=== PATIENT | female | born 1970 | race African-American/Black ===

== ENCOUNTER 2018-05-23 15:48 | Inpatient (IN) | payer OTHER ==
[2018-05-23 17:28] VITALS: BMI 32.4
--- NOTE | 2018-05-23 19:18 | HP ---
CIWA Score Nausea/Vomitin-No Nausea/No Vomiting Muscle Tremors: 4-Moderate,w/Arms Extend Anxiety: 4-Mod. Anxious/Guarded Agitation: 1-Slight > Activity Paroxysmal Sweats: 3 Orientation: 0-Oriented Tacttile Disturbances: 0-None Auditory Disturbances: 0-None Visual Disturbances: 0-None Headache: 0-None Present CIWA-Ar Total Score: 12 - Admission Criteria OASAS Guidelines: Admission for Medically Managed Detox: Requires at least one of the followin. CIWA greater than 12 2. Seizures within the past 24 hours 3. Delirium tremens within the past 24 hours 4. Hallucinations within the past 24 hours 5. Acute intervention needed for co occurring medical disorder 6. Acute intervention needed for co occurring psychiatric disorder 7. Severe withdrawal that cannot be handled at a lower level of care (continued vomiting, continued diarrhea, abnormal vital signs) requiring intravenous medication and/or fluids 8. Admission [facility] Allergies/Adverse Reactions: Allergies Allergy/AdvReac Type Severity Reaction Status Date / Time No Known Allergies Allergy Verified 05/23/18 18:03 History of Present Illness: pt here requesting detox from etoh use , reports 6=7 cans x 24 oz each , states she has tremors if not drinking, current symptoms as above, denies seizures, blackouts , latest use this morning, reports starts drinking around 9 am, first age of use 16 . Prior detox 2006 . cocaine : 7-8 bags/day denies ivdu , first age of use 26 tobacco : 10-12/day since age 15 heroin : since age 26 , denies IVDU ,reports 6-7 bags/day , latest use 3 d. ago , in [facility] since 2011 , current dose 155 mg PMHX : DM II dx 7 years ago , htn , hld PSHx : btl , left hip THR 2/2 frx fall off a bannister 5 years ago , had surgery in [place] , umbilical hernia 2 years ago PSych : auditory hallucinations , denies SI / HI . Meds : risperdal . Pt declined other rx meds . [employer]IC as below. Reference #: [id number] Others' Prescriptions Patient Name: Shannon Parada Date: 1970 Address: [address] [place] [address] Sex: Female Rx Written Rx Dispensed Drug Quantity Days Supply Prescriber Name 05/08/2018 05/15/2018 clonazepam 2 mg tablet 60 30 Randi Grubbs MD 04/15/2018 04/18/2018 clonazepam 2 mg tablet 60 30 Randi Grubbs MD 01/18/2018 01/24/2018 clonazepam 2 mg tablet 30 30 Randi Grubbs MD 11/23/2017 12/05/2017 clonazepam 2 mg tablet 30 30 Randi Grubbs MD 10/26/2017 10/30/2017 clonazepam 2 mg tablet 30 30 Randi Grubbs MD 10/02/2017 10/02/2017 clonazepam 2 mg tablet 30 30 Randi Grubbs MD 08/30/2017 09/04/2017 clonazepam 2 mg tablet 30 30 Randi Grubbs MD 08/02/2017 08/03/2017 clonazepam 2 mg tablet 30 30 Randi Grubbs MD 06/28/2017 07/05/2017 clonazepam 2 mg tablet 30 30 Randi Grubbs MD 05/29/2017 06/05/2017 clonazepam 2 mg tablet 30 30 Randi Grubbs MD Exam Limitations: Clinical Condition - Ebola screening Have you traveled outside of the country in the last 21 days: No Have you had contact with anyone from an Ebola affected area: No Have you been sick,other than usual withdrawal symptoms: No - Review of Systems Constitutional: See HPI EENT: reports: Other ( glasses - reading dentures upper and lower) Respiratory: reports: No Symptoms reported Cardiac: reports: No Symptoms Reported GI: reports: Other (reports recurrent hernia) : reports: No Symptoms Reported Musculoskeletal: reports: See HPI, Joint Pain (left hip - chronic) Integumentary: reports: No Symptoms Reported Neuro: reports: No Symptoms reported Psychiatric: reports: Orientated x3 Patient History - Patient Medical History Hx Asthma: No Hx Chronic Obstructive Pulmonary Disease (COPD): No Hx Cardiac Disorders: No Hx Hypertension: Yes Hx Seizures: No Hx Diabetes: Yes (Type II) Hx Gastrointestinal Disorders: No Hx Genitourinary Disorders: No Hx Sexually Transmitted Disorders: No Hx Renal Disease (ESRD): No Hx Depression: No Hx Suicide Attempt: No Hx Schizophrenia: Yes - Patient Surgical History Past Surgical History: Yes Hx Abdominal Surgery: Yes (hernia repair) Hx Orthopedic Surgery: Yes (L hip replacement) Other Surgical History: tubal ligation 2008 - PPD History Previous Implant?: Yes Documented Results: Positive w/o proof Implanted On Prior [facility] Admission?: No - Reproductive History Patient : No - Smoking Cessation Smoking history: Current every day smoker Have you smoked in the past 12 months: Yes Aproximately how many cigarettes per day: 12 Hx Chewing Tobacco Use: No Initiated information on smoking cessation: No - Substances Abused Alcohol Route: Oral Frequency: Daily Amount used: 6pk beer Age of first use: 15 Date of Last Use: 05/23/18 Heroin Route: Smoking Frequency: Daily Amount used: 7-8 bags Age of first use: 26 Date of Last Use: 05/22/18 Crack Route: Smoking Frequency: Daily Amount used: $60-70 Age of first use: 26 Date of Last Use: 05/22/18 Family Disease History - Family Disease History Family History: Unable to Obtain (states was adopted) Admission Physical Exam [facility] - Vital Signs Vital Signs: Vital Signs - 24 hr 05/23/18 17:24 Temperature 97 F L Pulse Rate 70 Respiratory 18 Rate Blood Pressure 112/77 - Physical General Appearance: Yes: No Apparent Distress, Sweating, Anxious HEENTM: Yes: EOMI, Hearing grossly Normal, Normocephalic, Normal Voice Respiratory: Yes: Chest Non-Tender, Lungs Clear, Normal Breath Sounds Neck: Yes: No masses,lesions,Nodules, Trachea in good position Cardiology: Yes: Regular Rhythm, Regular Rate, S1, S2 Back: Yes: Normal Inspection Musculoskeletal: Yes: full range of Motion, Gait Steady Extremities: Yes: Non-Tender Neurological: Yes: Motor Strength 5/5 Integumentary: Yes: Normal Color, Warm - Diagnostic (1) Cocaine dependence Current Visit: Yes Status: Chronic Qualifiers: Substance use status: uncomplicated Qualified Code(s): F14.20 - Cocaine dependence, uncomplicated (2) Opioid dependence on agonist therapy Current Visit: Yes Status: Chronic (3) Nicotine dependence Current Visit: Yes Status: Acute Qualifiers: Nicotine product type: cigarettes (4) Alcohol dependence Current Visit: Yes Status: Acute Qualifiers: Substance use status: uncomplicated Qualified Code(s): F10.20 - Alcohol dependence, uncomplicated BHS Breath Alcohol Content Breath Alcohol Content: 0 Urine Pregancy Test - Result Urine Test Results: Negative - NO Line Present Urine Drug Screen - Results Drug Screen Negative: No Urine Drug Screen Results: JP-Cocaine, MTD-Methadone Inpatient Rehab Admission - Rehab Decision to Admit Inpatient rehab admission?: No
[2018-05-23] MEDS ORDERED: MAG HYDROX/AL HYDROX/SIMETH 30 ML UNIT-DOSE CUP PO PRN (19:32)
[2018-05-23] MEDS ORDERED: DICYCLOMINE HCL 10 MG CAPSULE PO PRN (19:32)
[2018-05-23] MEDS ORDERED: diazePAM 5 MG TABLET PO PRN (19:32)
[2018-05-23] MEDS ORDERED: NICOTINE POLACRILEX 2 MG GUM BUC PRN (19:32)
[2018-05-23] MEDS ORDERED: MAGNESIUM CITRATE 300 ML BOTTLE PO PRN (19:32)
[2018-05-23] MEDS ORDERED: ACETAMINOPHEN 325 MG TABLET (FP) PO PRN ×2 (19:32)
[2018-05-23] MEDS ORDERED: IBUPROFEN 400 MG TABLET (FP) PO PRN (19:32)
[2018-05-23] MEDS ORDERED: hydrOXYzine PAMOATE 25 MG CAPSULE (FP) PO PRN (19:32)
[2018-05-23] MEDS ORDERED: MAGNESIUM HYDROX 2400MG/30ML ORAL SUSPENSION 30 ML CUP PO PRN (19:32)
[2018-05-23] MEDS ORDERED: MENTHOL/PHENOL 1 EACH UD MM PRN (19:32)
[2018-05-23] MEDS: THIAMINE HCL 100 MG TABLET (FP) PO SCH (21:55)
[2018-05-23] MEDS: diazePAM 5 MG TABLET PO SCH (21:55)
[2018-05-24] MEDS: diazePAM 5 MG TABLET PO SCH ×3 (06:01→22:12)
[2018-05-24] MEDS: metFORMIN HCL 500 MG TABLET (FP) PO SCH (06:04)
[2018-05-24] MEDS: INSULIN SLIDING SCALE (NOVOLOG) 1 VIAL SQ SCH ×2 (06:07→17:03)
[2018-05-24] MEDS ORDERED: METHADONE HCL 10 MG TABLET PO SCH (07:15)
[2018-05-24] MEDS ORDERED: METHADONE HCL 40 MG DISPERSABLE TABLET ONE (07:21)
[2018-05-24] MEDS ORDERED: METHADONE HCL 10 MG TABLET ONE (07:21)
[2018-05-24] MEDS ORDERED: METHADONE HCL 5 MG TABLET ONE (07:22)
[2018-05-24] MEDS: METHADONE 120 MG, METHADONE 30 MG, METHADONE 5 MG PO SCH (07:24)
[2018-05-24 09:43] LABS: HEMATOCRIT 36.2 % (32.4-45.2); HEMOGLOBIN 12.5 GM/dL (10.7-15.3); MCH 30.4 pg (25.7-33.7); MCHC 34.4 g/dl (32.0-36.0); MEAN CELL VOLUME 88.4 fl (80-96); MEAN PLT VOLUME 8.8 fl (7.5-11.1); PLATELET COUNT 195 K/MM3 (134-434); RDW 14.7 % (11.6-15.6); WHITE BLOOD COUNT 4.5 K/mm3 (4.0-10.0)
[2018-05-24 09:55] LABS: ALK PHOS 70 U/L (45-117); ANION GAP 8 MMOL/L (8-16); BILIRUBIN,TOTAL 0.1 mg/dL (0.2-1); BLOOD UREA NITROGEN 25 mg/dL (7-18); CHLORIDE 108 mmol/L (98-107); CO2 25 mmol/L (21-32); CREATININE 1.2 mg/dL (0.55-1.3); GLUCOSE,RANDOM 84 mg/dL (74-106); POTASSIUM 4.2 mmol/L (3.5-5.1); SGOT/AST 11 U/L (15-37); SGPT/ALT 16 U/L (13-61); SODIUM 141 mmol/L (136-145)
[2018-05-24] MEDS: NICOTINE 21 MG/24 HOURS TOPICAL PATCH TD SCH (10:11)
[2018-05-24] MEDS: PRENATAL VITAMINS W/ FOLIC ACID TABLET (FP) PO SCH (10:11)
--- NOTE | 2018-05-24 12:09 | CONSULT ---
[facility] Psychiatric Consult - Data Date of interview: 05/24/18 Admission source: [facility] Identifying data: First admission to [facility] for this 48 y/o AA female self- referred for detoxification (alcohol, heroin, cocaine). Interviewed on . Patient is single, a mother of three, domiciled, unemployed and supported on Public Assistance. Substance Abuse History: Confirmed by patient in this interview. Details in current [facility] report as follows : Smoking history: Current every day smoker. Have you smoked in the past 12 months: Yes. Aproximately how many cigarettes per day: 12. Hx Chewing Tobacco Use: No. Initiated information on smoking cessation: No. - Substances Abused. Alcohol. Route: Oral. Frequency: Daily. Amount used: 6pk beer. Age of first use: 15. Date of Last Use: . Heroin. Route: Smoking. Frequency: Daily. Amount used: 7-8 bags. Age of first use: 26. Date of Last Use: 05/22/18. Crack. Route: Smoking. Frequency: Daily. Amount used: $60-70. Age of first use: 26. Date of Last Use : 05/22/18 Medical History: Remarkable for arthritis (both knees), hypertension, non- insulin dependent diabetes mellitus, dyslipidemia, arthroplastic surgery of left hip (five years ago), umbilical herniaand history of tubal ligation (2008). Psychiatric History: No reported history of psychiatric hospitalizations. Patient has, however, been diagnosed with Bipolar Disorder and placed on risperdal + sertraline (doses not recalled). Ms Parada is currently seeing a psychiatrist at the [facility] in [facility]. Denies history of suicide attempts. Patient is currently on methadone maintenance (155 mg/day). Physical/Sexual Abuse/Trauma History: No history of abuse. Additional Comment: Urine Drug Screen Results: JP-Cocaine, MTD-Methadone. Noted. Mental Status Exam - Mental Status Exam Alert and Oriented to: Time, Place, Person Cognitive Function: Good Patient Appearance: Well Groomed Mood: Withdrawn, Apprehensive Affect: Mood Congruent, Constricted Patient Behavior: Fatigued (falling almost asleep during examination), Cooperative Speech Pattern: Clear, Delayed Voice Loudness: Moderately Soft/Quiet Thought Process: Goal Oriented Thought Disorder: Not Present Hallucinations: Denies Suicidal Ideation: Denies Homicidal Ideation: Denies Insight/Judgement: Poor Sleep: Well Appetite: Good Gait/Station: Other (walks with a limp ; has a cane for ambulation) Psychiatric Findings - Problem List ([place] 1, 2,3) (1) Alcohol dependence Current Visit: Yes Status: Acute Qualifiers: Substance use status: uncomplicated Qualified Code(s): F10.20 - Alcohol dependence, uncomplicated (2) Nicotine dependence Current Visit: Yes Status: Chronic Qualifiers: Nicotine product type: cigarettes (3) Cocaine dependence Current Visit: Yes Status: Chronic Qualifiers: Substance use status: uncomplicated Qualified Code(s): F14.20 - Cocaine dependence, uncomplicated (4) Opioid dependence on agonist therapy Current Visit: Yes Status: Chronic (5) Substance induced mood disorder Current Visit: Yes Status: Chronic (6) History of bipolar disorder Current Visit: Yes Status: Chronic - Initial Treatment Plan Initial Treatment Plan: Psychoeducation. Sleep hygiene. Detoxification in progress. Support offered. NA/AA meetings. Groups. Motivational sessions. Falls precautions (patient is encouraged to use her cane for ambulation).
--- NOTE | 2018-05-24 18:10 | PN ---
[facility] CIWA - CIWA Score Nausea/Vomitin-No Nausea/No Vomiting Muscle Tremors: 3 Anxiety: 3 Agitation: 1-Slight > Activity Paroxysmal Sweats: 3 Orientation: 0-Oriented Tacttile Disturbances: 2-Mild Itch/Numbness/Burn Auditory Disturbances: 0-None Visual Disturbances: 2-Mild Sensitivity Headache: 0-None Present CIWA-Ar Total Score: 14 BHS Progress Note (SOAP) Subjective: Anxious, Tremors, Sweating. Objective: PATIENT A & O X 3, OBSERVED AMBULATING ON UNIT. IN NO ACUTE DISTRESS. 05/24/18 18:18 Vital Signs Temperature 98.6 F 05/24/18 17:56 Pulse Rate 61 05/24/18 17:56 Respiratory Rate 18 05/24/18 17:56 Blood Pressure 121/84 05/24/18 17:56 O2 Sat by Pulse Oximetry (%) Laboratory Tests 05/23/18 05/24/18 05/24/18 18:07 06:03 07:40 WBC RBC Hgb Hct MCV MCH MCHC RDW Plt Count MPV Sodium Potassium Chloride Carbon Dioxide Anion Gap BUN Creatinine Creat Clearance w eGFR POC Glucometer 109 101 Random Glucose Calcium Total Bilirubin AST ALT Alkaline Phosphatase Total Protein Albumin RPR Titer HIV 1&2 Antibody Screen Negative HIV P24 Antigen Negative 05/24/18 05/24/18 05/24/18 07:40 07:40 07:40 WBC 4.5 RBC 4.10 Hgb 12.5 Hct 36.2 MCV 88.4 MCH 30.4 MCHC 34.4 RDW 14.7 Plt Count 195 MPV 8.8 Sodium 141 Potassium 4.2 Chloride 108 H Carbon Dioxide 25 Anion Gap 8 BUN 25 H Creatinine 1.2 Creat Clearance w eGFR 47.55 POC Glucometer Random Glucose 84 Calcium 8.0 L Total Bilirubin 0.1 L AST 11 L ALT 16 Alkaline Phosphatase 70 Total Protein 6.0 L Albumin 3.0 L RPR Titer Nonreactive HIV 1&2 Antibody Screen HIV P24 Antigen 05/24/18 16:47 WBC RBC Hgb Hct MCV MCH MCHC RDW Plt Count MPV Sodium Potassium Chloride Carbon Dioxide Anion Gap BUN Creatinine Creat Clearance w eGFR POC Glucometer 111 Random Glucose Calcium Total Bilirubin AST ALT Alkaline Phosphatase Total Protein Albumin RPR Titer HIV 1&2 Antibody Screen HIV P24 Antigen LABS NOTED. Assessment: 05/24/18 18:19 WITHDRAWAL SYMPTOMS. HYPOCALCEMIA. 05/24/18 18:20 Plan: CONTINUE DETOX. OSCAL, 500 MG PO BID FOR HYPOCALCEMIA. D/C IBUPROFEN AND MAGNESIUM-CONTAINING MEDS. FOR ABNORMAL ADMISSION RENAL LAB VALUES.
[2018-05-24] MEDS: CALCIUM 500MG/VIT-D 200 UNITS COMBO TABLET (FP) PO SCH (22:12)
[2018-05-24] MEDS: risperiDONE 1 MG TABLET (FP) PO SCH (22:12)
[2018-05-24] MEDS: MELATONIN 5 MG TABLETS PO PRN (22:12)
[2018-05-24] MEDS: THIAMINE HCL 100 MG TABLET (FP) PO SCH (22:12)
[2018-05-24] MEDS ORDERED: guaiFENesin 200 MG/10 ML 10 ML UNIT-DOSE CUPS PO PRN (23:26)
[2018-05-24] MEDS: P-EPHED 60MG/TRIPROLIDI 2.5MG TABLET PO PRN (23:34)
[2018-05-25] MEDS ORDERED: METHADONE HCL 10 MG TABLET ONE (04:47)
[2018-05-25] MEDS ORDERED: METHADONE HCL 5 MG TABLET ONE (04:48)
[2018-05-25] MEDS ORDERED: METHADONE HCL 40 MG DISPERSABLE TABLET ONE (04:48)
[2018-05-25] MEDS: METHADONE 120 MG, METHADONE 30 MG, METHADONE 5 MG PO SCH (06:11)
[2018-05-25] MEDS: metFORMIN HCL 500 MG TABLET (FP) PO SCH (06:12)
[2018-05-25] MEDS: INSULIN SLIDING SCALE (NOVOLOG) 1 VIAL SQ SCH ×2 (06:14→16:58)
[2018-05-25] MEDS: NICOTINE 21 MG/24 HOURS TOPICAL PATCH TD SCH (09:54)
[2018-05-25] MEDS: CALCIUM 500MG/VIT-D 200 UNITS COMBO TABLET (FP) PO SCH ×2 (09:55→22:26)
[2018-05-25] MEDS: diazePAM 5 MG TABLET PO SCH ×2 (09:55→22:26)
[2018-05-25] MEDS: PRENATAL VITAMINS W/ FOLIC ACID TABLET (FP) PO SCH (09:55)
[2018-05-25] MEDS: SERTRALINE HCL 50 MG TABLET (FP) PO SCH (11:00)
--- NOTE | 2018-05-25 16:24 | PN ---
S CIWA - CIWA Score Nausea/Vomitin-No Nausea/No Vomiting Muscle Tremors: 3 Anxiety: 3 Agitation: 1-Slight > Activity Paroxysmal Sweats: 3 Orientation: 0-Oriented Tacttile Disturbances: 2-Mild Itch/Numbness/Burn Auditory Disturbances: 0-None Visual Disturbances: 1-Very Mild Sensitivity Headache: 0-None Present CIWA-Ar Total Score: 13 BHS Progress Note (SOAP) Subjective: Anxious, Tremors, Sweating. Objective: PATIENT A & O X 3. IN NO ACUTE DISTRESS. 05/25/18 16:22 Vital Signs Temperature 97.3 F L 05/25/18 14:00 Pulse Rate 79 05/25/18 14:00 Respiratory Rate 18 05/25/18 14:00 Blood Pressure 117/77 05/25/18 14:00 O2 Sat by Pulse Oximetry (%) Laboratory Tests 05/23/18 05/24/18 05/24/18 18:07 06:03 07:40 WBC RBC Hgb Hct MCV MCH MCHC RDW Plt Count MPV Sodium Potassium Chloride Carbon Dioxide Anion Gap BUN Creatinine Creat Clearance w eGFR POC Glucometer 109 101 Random Glucose Calcium Total Bilirubin AST ALT Alkaline Phosphatase Total Protein Albumin RPR Titer HIV 1&2 Antibody Screen Negative HIV P24 Antigen Negative 05/24/18 05/24/18 05/24/18 07:40 07:40 07:40 WBC 4.5 RBC 4.10 Hgb 12.5 Hct 36.2 MCV 88.4 MCH 30.4 MCHC 34.4 RDW 14.7 Plt Count 195 MPV 8.8 Sodium 141 Potassium 4.2 Chloride 108 H Carbon Dioxide 25 Anion Gap 8 BUN 25 H Creatinine 1.2 Creat Clearance w eGFR 47.55 POC Glucometer Random Glucose 84 Calcium 8.0 L Total Bilirubin 0.1 L AST 11 L ALT 16 Alkaline Phosphatase 70 Total Protein 6.0 L Albumin 3.0 L RPR Titer Nonreactive HIV 1&2 Antibody Screen HIV P24 Antigen 05/24/18 05/25/18 16:47 06:10 WBC RBC Hgb Hct MCV MCH MCHC RDW Plt Count MPV Sodium Potassium Chloride Carbon Dioxide Anion Gap BUN Creatinine Creat Clearance w eGFR POC Glucometer 111 97 Random Glucose Calcium Total Bilirubin AST ALT Alkaline Phosphatase Total Protein Albumin RPR Titer HIV 1&2 Antibody Screen HIV P24 Antigen LABS NOTED. Assessment: 05/25/18 16:23 WITHDRAWAL SYMPTOMS. HYPOCALCEMIA. 05/25/18 16:24 Plan: CONTINUE DETOX. CONTINUE OSCAL FOR HYPOCALCEMIA.
[2018-05-25] MEDS: P-EPHED 60MG/TRIPROLIDI 2.5MG TABLET PO PRN (17:59)
[2018-05-25] MEDS: THIAMINE HCL 100 MG TABLET (FP) PO SCH (22:25)
[2018-05-25] MEDS: risperiDONE 1 MG TABLET (FP) PO SCH (22:26)
[2018-05-26] MEDS ORDERED: METHADONE HCL 10 MG TABLET ONE (05:02)
[2018-05-26] MEDS ORDERED: METHADONE HCL 40 MG DISPERSABLE TABLET ONE (05:02)
[2018-05-26] MEDS ORDERED: METHADONE HCL 5 MG TABLET ONE (05:03)
[2018-05-26] MEDS: METHADONE 120 MG, METHADONE 30 MG, METHADONE 5 MG PO SCH (05:46)
[2018-05-26] MEDS ORDERED: diazePAM 5 MG TABLET PO SCH (06:00)
[2018-05-26] MEDS: metFORMIN HCL 500 MG TABLET (FP) PO SCH (06:13)
[2018-05-26] MEDS: INSULIN SLIDING SCALE (NOVOLOG) 1 VIAL SQ SCH ×2 (06:33→16:55)
[2018-05-26] MEDS: PRENATAL VITAMINS W/ FOLIC ACID TABLET (FP) PO SCH (10:14)
[2018-05-26] MEDS: CALCIUM 500MG/VIT-D 200 UNITS COMBO TABLET (FP) PO SCH ×2 (10:14→22:20)
[2018-05-26] MEDS: SERTRALINE HCL 50 MG TABLET (FP) PO SCH (10:16)
[2018-05-26] MEDS: NICOTINE 21 MG/24 HOURS TOPICAL PATCH TD SCH (10:18)
--- NOTE | 2018-05-26 11:43 | PN ---
[facility] CIWA - CIWA Score Nausea/Vomitin-No Nausea/No Vomiting Muscle Tremors: 2 Anxiety: 1-Mildly Anxious Agitation: 2 Paroxysmal Sweats: 1-Minimal Palms Moist Orientation: 2-Disoriented Date<2 days Tacttile Disturbances: 0-None Auditory Disturbances: 0-None Visual Disturbances: 0-None Headache: 1-Very Mild CIWA-Ar Total Score: 9 S Progress Note (SOAP) Subjective: feeling better less sweating mild tremor Objective: 05/26/18 11:40 Vital Signs Temperature 97.1 F L 05/26/18 10:00 Pulse Rate 75 05/26/18 10:00 Respiratory Rate 18 05/26/18 10:00 Blood Pressure 111/72 05/26/18 10:00 O2 Sat by Pulse Oximetry (%) Laboratory Last Values WBC 4.5 K/mm3 (4.0-10.0) 05/24/18 07:40 RBC 4.10 M/mm3 (3.60-5.2) 05/24/18 07:40 Hgb 12.5 GM/dL (10.7-15.3) 05/24/18 07:40 Hct 36.2 % (32.4-45.2) 05/24/18 07:40 MCV 88.4 fl (80-96) 05/24/18 07:40 MCH 30.4 pg (25.7-33.7) 05/24/18 07:40 MCHC 34.4 g/dl (32.0-36.0) 05/24/18 07:40 RDW 14.7 % (11.6-15.6) 05/24/18 07:40 Plt Count 195 K/MM3 (134-434) 05/24/18 07:40 MPV 8.8 fl (7.5-11.1) 05/24/18 07:40 Sodium 141 mmol/L (136-145) 05/24/18 07:40 Potassium 4.2 mmol/L (3.5-5.1) 05/24/18 07:40 Chloride 108 mmol/L (98-107) H 05/24/18 07:40 Carbon Dioxide 25 mmol/L (21-32) 05/24/18 07:40 Anion Gap 8 MMOL/L (8-16) 05/24/18 07:40 BUN 25 mg/dL (7-18) H 05/24/18 07:40 Creatinine 1.2 mg/dL (0.55-1.3) 05/24/18 07:40 Creat Clearance w eGFR 47.55 (>60) 05/24/18 07:40 POC Glucometer 91 UNITS (80-120) 05/26/18 05:49 Random Glucose 84 mg/dL (74-106) 05/24/18 07:40 Calcium 8.0 mg/dL (8.5-10.1) L 05/24/18 07:40 Total Bilirubin 0.1 mg/dL (0.2-1) L 05/24/18 07:40 AST 11 U/L (15-37) L 05/24/18 07:40 ALT 16 U/L (13-61) 05/24/18 07:40 Alkaline Phosphatase 70 U/L (45-117) 05/24/18 07:40 Total Protein 6.0 g/dl (6.4-8.2) L 05/24/18 07:40 Albumin 3.0 g/dl (3.4-5.0) L 05/24/18 07:40 RPR Titer Nonreactive (NONREACTIVE) 05/24/18 07:40 HIV 1&2 Antibody Screen Negative 05/24/18 07:40 HIV P24 Antigen Negative 05/24/18 07:40 lab noted Assessment: 05/26/18 11:40 mild withdrawal sx ventral hernia last surgical repaired 2016 about 5 cm rond soft protrude while standing and exertion no signs of strangulation Plan: continue detox abdomen binder
[2018-05-26] MEDS: THIAMINE HCL 100 MG TABLET (FP) PO SCH (22:20)
[2018-05-26] MEDS: risperiDONE 1 MG TABLET (FP) PO SCH (22:20)
[2018-05-26] MEDS: MELATONIN 5 MG TABLETS PO PRN (22:21)
[2018-05-27] MEDS ORDERED: METHADONE HCL 10 MG TABLET ONE (04:33)
[2018-05-27] MEDS ORDERED: METHADONE HCL 40 MG DISPERSABLE TABLET ONE (04:33)
[2018-05-27] MEDS ORDERED: METHADONE HCL 5 MG TABLET ONE (04:34)
[2018-05-27] MEDS: METHADONE 120 MG, METHADONE 30 MG, METHADONE 5 MG PO SCH (05:53)
[2018-05-27] MEDS: metFORMIN HCL 500 MG TABLET (FP) PO SCH (06:22)
[2018-05-27] MEDS: INSULIN SLIDING SCALE (NOVOLOG) 1 VIAL SQ SCH (07:15)
[2018-05-27 09:14] VITALS: BP 124/83; PULSE 77; TEMP 97.8
[2018-05-27] MEDS: CALCIUM 500MG/VIT-D 200 UNITS COMBO TABLET (FP) PO SCH (10:29)
[2018-05-27] MEDS: PRENATAL VITAMINS W/ FOLIC ACID TABLET (FP) PO SCH (10:29)
[2018-05-27] MEDS: SERTRALINE HCL 50 MG TABLET (FP) PO SCH (10:30)
[2018-05-27] MEDS: NICOTINE 21 MG/24 HOURS TOPICAL PATCH TD SCH (10:30)
--- NOTE | 2018-05-27 14:30 | DS ---
[facility] Detox Discharge Summary Admission Date: 05/23/18 Discharge Date: 05/27/18 - History Present History: Alcohol Dependence Additional Comments: 48 years old female admitted on 05/23/18 for alcohol withdrawal stabilization completed detox regimen [facility] - Physical Exam Results Vital Signs: Vital Signs Temperature 97.8 F 05/27/18 09:14 Pulse Rate 77 05/27/18 09:14 Respiratory Rate 18 05/27/18 09:14 Blood Pressure 124/83 05/27/18 09:14 O2 Sat by Pulse Oximetry (%) Pertinent Admission Physical Exam Findings: alcohol withdrawal sx Laboratory Last Values WBC 4.5 K/mm3 (4.0-10.0) 05/24/18 07:40 RBC 4.10 M/mm3 (3.60-5.2) 05/24/18 07:40 Hgb 12.5 GM/dL (10.7-15.3) 05/24/18 07:40 Hct 36.2 % (32.4-45.2) 05/24/18 07:40 MCV 88.4 fl (80-96) 05/24/18 07:40 MCH 30.4 pg (25.7-33.7) 05/24/18 07:40 MCHC 34.4 g/dl (32.0-36.0) 05/24/18 07:40 RDW 14.7 % (11.6-15.6) 05/24/18 07:40 Plt Count 195 K/MM3 (134-434) 05/24/18 07:40 MPV 8.8 fl (7.5-11.1) 05/24/18 07:40 Sodium 141 mmol/L (136-145) 05/24/18 07:40 Potassium 4.2 mmol/L (3.5-5.1) 05/24/18 07:40 Chloride 108 mmol/L (98-107) H 05/24/18 07:40 Carbon Dioxide 25 mmol/L (21-32) 05/24/18 07:40 Anion Gap 8 MMOL/L (8-16) 05/24/18 07:40 BUN 25 mg/dL (7-18) H 05/24/18 07:40 Creatinine 1.2 mg/dL (0.55-1.3) 05/24/18 07:40 Creat Clearance w eGFR 47.55 (>60) 05/24/18 07:40 POC Glucometer 112 UNITS (80-120) 05/27/18 05:52 Random Glucose 84 mg/dL (74-106) 05/24/18 07:40 Calcium 8.0 mg/dL (8.5-10.1) L 05/24/18 07:40 Total Bilirubin 0.1 mg/dL (0.2-1) L 05/24/18 07:40 AST 11 U/L (15-37) L 05/24/18 07:40 ALT 16 U/L (13-61) 05/24/18 07:40 Alkaline Phosphatase 70 U/L (45-117) 05/24/18 07:40 Total Protein 6.0 g/dl (6.4-8.2) L 05/24/18 07:40 Albumin 3.0 g/dl (3.4-5.0) L 05/24/18 07:40 RPR Titer Nonreactive (NONREACTIVE) 05/24/18 07:40 HIV 1&2 Antibody Screen Negative 05/24/18 07:40 HIV P24 Antigen Negative 05/24/18 07:40 lab noted - Treatment Hospital Course: Detox Protocol Followed, Detoxed Safely, Responded well, Discharged Condition Good, Rehab Referral Accepted Patient has Accepted a [facility]hab Referral to: [facility] - Medication Discharge Medications: Ambulatory Orders Risperidone [Risperdal -] 1 mg PO HS 05/23/18 Sertraline HCl [Zoloft -] 100 mg PO DAILY 05/23/18 Metformin HCl [Glucophage] 500 mg PO DAILY #30 tablet 05/26/18 - Diagnosis (1) Alcohol dependence Status: Acute Qualifiers: Substance use status: uncomplicated Qualified Code(s): F10.20 - Alcohol dependence, uncomplicated (2) Nicotine dependence Status: Acute Qualifiers: Nicotine product type: cigarettes Substance use status: in withdrawal Qualified Code(s): F17.213 - Nicotine dependence, cigarettes, with withdrawal (3) Substance induced mood disorder Status: Suspected - AMA Did Patient Leave Against Medical Advice: No
== END 2018-05-27 13:21 | disposition other institution (70) | DRG 773 ==
LOC: YASAS 15:48 → Y3N 19:44
PROVIDERS: ADMIT Surgery; ATTEND Surgery
PROC: HZ2ZZZZ Detoxification Services for Substance Abuse Treatment (ICD-10-PCS; principal; 2018-05-24)
DX: F10.230 Alcohol dependence with withdrawal, uncomplicated (principal); F14.20 Cocaine dependence, uncomplicated; F11.20 Opioid dependence, uncomplicated; F17.213 Nicotine dependence, cigarettes, with withdrawal; F31.9 Bipolar disorder, unspecified; F19.24 Other psychoactive substance dependence with psychoactive substance-induced mood disorder; E83.51 Hypocalcemia; I10 Essential (primary) hypertension; E78.5 Hyperlipidemia, unspecified; E11.9 Type 2 diabetes mellitus without complications; Z79.84 Long term (current) use of oral hypoglycemic drugs; R76.11 Nonspecific reaction to tuberculin skin test without active tuberculosis; R26.89 Other abnormalities of gait and mobility; Z99.89 Dependence on other enabling machines and devices
CPT/HCPCS: 36415; 71046-TC-FY; 80053; 82962; 85027; 86593; 87389; J2794

== ENCOUNTER 2018-05-27 12:48 | Inpatient (IN) | payer OTHER ==
[2018-05-27] MEDS ORDERED: LOPERAMIDE HCL 2 MG CAPSULE PO PRN (14:26)
[2018-05-27] MEDS ORDERED: IBUPROFEN 400 MG TABLET (FP) PO PRN (14:26)
[2018-05-27] MEDS ORDERED: ACETAMINOPHEN 325 MG TABLET (FP) PO PRN (14:26)
[2018-05-27] MEDS ORDERED: NICOTINE 14 MG/24 HOURS TOPICAL PATCH TD PRN (14:26)
[2018-05-27] MEDS ORDERED: P-EPHED 60MG/TRIPROLIDI 2.5MG TABLET PO PRN (14:26)
[2018-05-27] MEDS ORDERED: MAGNESIUM CITRATE 300 ML BOTTLE PO PRN (14:26)
[2018-05-27] MEDS ORDERED: MAGNESIUM HYDROX 2400MG/30ML ORAL SUSPENSION 30 ML CUP PO PRN (14:26)
[2018-05-27] MEDS ORDERED: MAG HYDROX/AL HYDROX/SIMETH 30 ML UNIT-DOSE CUP PO PRN (14:26)
--- NOTE | 2018-05-27 14:26 | HP ---
[facility] Rehab Assess/Revision - Admission History Admitted to Rehab from: [facility] Date of Admission to Rehab: 05/27/18 - Vital signs Vital Signs: Vital Signs Period Temp Pulse Resp BP Sys/Campbell Pulse Ox Last 24 Hr 97.9 F 62 18 130/79 - Findings Detox History & Physical reviewed: Yes Concur with findings: Yes Comments/Additional Findings: transferred from detox to rehab admission as per protocol Inpatient Rehab Admission - Rehab Decision to Admit Inpatient rehab admission?: Yes - Initial Determination Are CD services needed?: Yes Free of communicable disease: Yes Not in need of hospitalization: Yes - Rehab Admission Criteria Previous failed treatment: Yes Poor recovery environment: Yes Comorbidities: Yes Lacks judgement: No Patient is meeting Inpatient Rehab admission criteria:: Yes
[2018-05-27] MEDS: THIAMINE HCL 100 MG TABLET (FP) PO SCH (21:14)
[2018-05-27] MEDS: MELATONIN 5 MG TABLETS PO PRN (21:15)
[2018-05-28] MEDS ORDERED: METHADONE HCL 10 MG TABLET PO SCH (06:00)
[2018-05-28] MEDS ORDERED: METHADONE HCL 5 MG TABLET ONE (06:23)
[2018-05-28] MEDS ORDERED: METHADONE HCL 10 MG TABLET ONE (06:24)
[2018-05-28] MEDS: METHADONE 120 MG, METHADONE 30 MG, METHADONE 5 MG PO SCH (06:24)
[2018-05-28] MEDS ORDERED: METHADONE HCL 40 MG DISPERSABLE TABLET ONE (06:24)
[2018-05-28] MEDS: metFORMIN HCL 500 MG TABLET (FP) PO SCH (06:26)
[2018-05-28] MEDS: PRENATAL VITAMINS W/ FOLIC ACID TABLET (FP) PO SCH (10:22)
[2018-05-28] MEDS: NICOTINE POLACRILEX 2 MG GUM BC PRN (12:55)
[2018-05-28] MEDS: THIAMINE HCL 100 MG TABLET (FP) PO SCH (21:23)
[2018-05-28] MEDS: MELATONIN 5 MG TABLETS PO PRN (21:24)
[2018-05-29] MEDS ORDERED: METHADONE HCL 40 MG DISPERSABLE TABLET ONE (03:30)
[2018-05-29] MEDS ORDERED: METHADONE HCL 5 MG TABLET ONE (03:30)
[2018-05-29] MEDS ORDERED: METHADONE HCL 10 MG TABLET ONE (03:30)
[2018-05-29] MEDS: METHADONE 120 MG, METHADONE 30 MG, METHADONE 5 MG PO SCH (06:23)
[2018-05-29] MEDS: metFORMIN HCL 500 MG TABLET (FP) PO SCH (06:25)
[2018-05-29] MEDS: NICOTINE POLACRILEX 2 MG GUM BC PRN (06:26)
[2018-05-29] MEDS: PRENATAL VITAMINS W/ FOLIC ACID TABLET (FP) PO SCH (10:34)
[2018-05-29] MEDS: NICOTINE 14 MG/24 HOURS TOPICAL PATCH TD SCH (10:34)
[2018-05-29] MEDS: guaiFENesin 200 MG/10 ML 10 ML UNIT-DOSE CUPS PO PRN ×2 (14:51→21:44)
[2018-05-29] MEDS: MENTHOL/PHENOL 1 EACH UD MM PRN (14:52)
[2018-05-29] MEDS: THIAMINE HCL 100 MG TABLET (FP) PO SCH (21:42)
[2018-05-29] MEDS: MELATONIN 5 MG TABLETS PO PRN (21:43)
[2018-05-30] MEDS ORDERED: METHADONE HCL 5 MG TABLET ONE (03:25)
[2018-05-30] MEDS ORDERED: METHADONE HCL 10 MG TABLET ONE (03:25)
[2018-05-30] MEDS ORDERED: METHADONE HCL 40 MG DISPERSABLE TABLET ONE (03:26)
[2018-05-30] MEDS: METHADONE 120 MG, METHADONE 30 MG, METHADONE 5 MG PO SCH (06:23)
[2018-05-30] MEDS: metFORMIN HCL 500 MG TABLET (FP) PO SCH (06:24)
[2018-05-30] MEDS: NICOTINE POLACRILEX 2 MG GUM BC PRN (06:25)
[2018-05-30] MEDS: NICOTINE 14 MG/24 HOURS TOPICAL PATCH TD SCH (10:26)
[2018-05-30] MEDS: PRENATAL VITAMINS W/ FOLIC ACID TABLET (FP) PO SCH (10:26)
[2018-05-30] MEDS: guaiFENesin 200 MG/10 ML 10 ML UNIT-DOSE CUPS PO PRN ×2 (10:29→21:34)
[2018-05-30] MEDS: MENTHOL/PHENOL 1 EACH UD MM PRN ×2 (10:29→16:26)
--- NOTE | 2018-05-30 11:30 | PN ---
[facility] Progress Note (SOAP) Subjective: Pain in plantar aspect of right heel. Objective: No s/s of infection, area raised, central scabbed over opening (from picking at it), no drainage medial side, plantar aspect of right foot. non-tender to palpation. 05/30/18 11:29 Assessment: 05/30/18 11:35 plantar wart, right fool Plan: Discussed the need for podiatry consult upon discharge, patient aware of same.
[2018-05-30] MEDS: THIAMINE HCL 100 MG TABLET (FP) PO SCH (21:32)
[2018-05-30] MEDS: MELATONIN 5 MG TABLETS PO PRN (21:33)
[2018-05-30] MEDS: GABAPENTIN 400 MG CAPSULE (FP) PO SCH (21:33)
[2018-05-31] MEDS ORDERED: METHADONE HCL 10 MG TABLET ONE (05:37)
[2018-05-31] MEDS ORDERED: METHADONE HCL 5 MG TABLET ONE (05:37)
[2018-05-31] MEDS ORDERED: METHADONE HCL 40 MG DISPERSABLE TABLET ONE (05:38)
[2018-05-31] MEDS: metFORMIN HCL 500 MG TABLET (FP) PO SCH (06:07)
[2018-05-31] MEDS: METHADONE 120 MG, METHADONE 30 MG, METHADONE 5 MG PO SCH (06:08)
[2018-05-31] MEDS: GABAPENTIN 400 MG CAPSULE (FP) PO SCH ×2 (10:27→21:15)
[2018-05-31] MEDS: NICOTINE 14 MG/24 HOURS TOPICAL PATCH TD SCH (10:27)
[2018-05-31] MEDS: PRENATAL VITAMINS W/ FOLIC ACID TABLET (FP) PO SCH (10:27)
[2018-05-31] MEDS: guaiFENesin 200 MG/10 ML 10 ML UNIT-DOSE CUPS PO PRN ×2 (10:29→21:17)
[2018-05-31] MEDS: MENTHOL/PHENOL 1 EACH UD MM PRN (10:31)
[2018-05-31] MEDS ORDERED: SUVOREXANT 10 MG TABLET PO PRN (11:15)
--- NOTE | 2018-05-31 13:16 | PN ---
[facility] Progress Note Note: PATIENT SEEN FOR C/O NASAL STUFFINESS, RIGHT WRIST DISCOMFORT AND INSOMNIA. PATIENT STATES RIGHT WRIST DISCOMFORT NON-RADIATING, DULL AND LEVEL 4/10. REPORTS HX OF FALLING " A WHILE AGO" BUT DENIES RECENT INJURIES. Vital Signs Temperature 97.8 F 05/31/18 07:27 Pulse Rate 55 L 05/31/18 07:27 Respiratory Rate 18 05/31/18 07:27 Blood Pressure 102/76 05/31/18 07:27 O2 Sat by Pulse Oximetry (%) PE: ALERT AND ORIENTED X 3 SKIN WARM AND DRY +PERRLA, EOMS INTACT BL NEG NASAL DISCHARGE EXT FULL ROM, RIGHT WRIST WITH TRACE SWELLING, MILD TENDERNESS. + RADIAL PULSE. AMB AD JEWEL A/P: NASAL STUFFINESS RIGHT WRIST WITH MILD SWELLING/TENDERNESS INSOMNIA WILL ORDER FLONASE RIGHT WRIST XRAY PSYCH CONSULT FOR CHRONIC INSOMNIA AND EVALUATION OF PSYCH MEDICATIONS WILL ORDER BELSOMRA 10MG HS PRN UNTIL PSYCH EVALUATION MONITOR CLINICALLY
[2018-05-31] MEDS: FLUTICASONE PROP 0.05% 16 GM NASAL SPRAY NS SCH (14:26)
--- NOTE | 2018-05-31 17:42 | CONSULT ---
[facility] Psychiatric Consult - Data Date of interview: 05/31/18 Admission source: [facility] Identifying data: Patient is a 48 year old single female, mother of three (one is ), domiciled, unemployed, and is supported by welfare benefits. This is patient's first admission to rehab at [facility]. Patient admitted to for opiate dependence. Substance Abuse History: Smoking Cessation. Smoking history: Current every day smoker. Have you smoked in the past 12 months: Yes. Aproximately how many cigarettes per day: 12. Hx Chewing Tobacco Use: No. Initiated information on smoking cessation: No. - Substances Abused. Alcohol. Route: Oral. Frequency: Daily. Amount used: 6pk beer. Age of first use: 15. Date of Last Use: 05/23/18. Heroin. Route: Smoking. Frequency: Daily. Amount used: 7- 8 bags. Age of first use: 26. Date of Last Use: 05/22/18. Crack. Route: Smoking. Frequency: Daily. Amount used: $60-70. Age of first use: 26. Date of Last Use: 05/22/18 Medical History: Remarkable for arthritis (both knees), hypertension, non- insulin dependent diabetes mellitus, dyslipidemia, arthroplastic surgery of left hip (five years ago), umbilical herniaand history of tubal ligation (2008). Psychiatric History: Patient's first psychiatric contact was three years ago at an outpatient clinic in [place]. She seeked psychiatric care after her daughter and she began to experienced severe depression. She reports being diagnosed with bipolar disorder and schizophrenia and was prescribed seroquel 100mg +trazodone 150mg HS. As per patient she has only endorsed auditory hallucinations when under the influence of an illegal substance. She reports h/o unstable mood although is unable to elaborate on her episodes of mood instability. Patient accepted seroquel and trazodone for approximatly two years and stated the medications were discontinued after she started to received outpatient psychiatric care at the [facility] which is where she currently receives psychiatric care. States Dr. Mtz prescribes her risperdal (unknown dose) + Gabapentin 800mg + Klononpin 2mg. She reports nonadherence to risperdal. Patient is also accepting methadone maintenance of 155mg daily. At present patient is experiencing difficulty sleeping. No psychosis noted. Physical/Sexual Abuse/Trauma History: denies. Mental Status Exam - Mental Status Exam Alert and Oriented to: Time, Place, Person Cognitive Function: Good Patient Appearance: Well Groomed Mood: Euthymic Affect: Mood Congruent Patient Behavior: Cooperative Speech Pattern: Appropriate Voice Loudness: Normal Thought Process: Intact, Goal Oriented Thought Disorder: Not Present Hallucinations: Denies Suicidal Ideation: Denies Homicidal Ideation: Denies Insight/Judgement: Poor Sleep: Poorly Appetite: Fair Muscle strength/Tone: Normal Gait/Station: Normal Psychiatric Findings - Problem List ([place] 1, 2,3) (1) Alcohol dependence Current Visit: Yes Status: Acute Qualifiers: Substance use status: uncomplicated Qualified Code(s): F10.20 - Alcohol dependence, uncomplicated (2) Nicotine dependence Current Visit: Yes Status: Chronic Qualifiers: Nicotine product type: cigarettes Substance use status: in withdrawal Qualified Code(s): F17.213 - Nicotine dependence, cigarettes, with withdrawal (3) Cocaine dependence Current Visit: Yes Status: Chronic Qualifiers: Substance use status: uncomplicated Qualified Code(s): F14.20 - Cocaine dependence, uncomplicated (4) History of bipolar disorder Current Visit: Yes Status: Chronic (5) Opioid dependence on agonist therapy Current Visit: Yes Status: Chronic (6) Substance induced mood disorder Current Visit: Yes Status: Chronic - Initial Treatment Plan Initial Treatment Plan: Psychoeducation provided. Detoxification in progress. Will order Trazodone 50mg qhs and discontinue belsomra 10mg. Patient has yet to accept belsomra. Insomnia to be addressed with trazodone and melatonin. Medications can be given together. Benefits and side effects discussed. Verbal consent given.
[2018-05-31] MEDS: THIAMINE HCL 100 MG TABLET (FP) PO SCH (21:15)
[2018-05-31] MEDS: traZODone HCL 50 MG TABLET (FP) PO SCH (21:17)
[2018-06-01] MEDS ORDERED: METHADONE HCL 40 MG DISPERSABLE TABLET ONE (03:27)
[2018-06-01] MEDS ORDERED: METHADONE HCL 5 MG TABLET ONE (03:27)
[2018-06-01] MEDS ORDERED: METHADONE HCL 10 MG TABLET ONE (03:27)
[2018-06-01] MEDS: METHADONE 120 MG, METHADONE 30 MG, METHADONE 5 MG PO SCH (06:46)
[2018-06-01] MEDS: NICOTINE POLACRILEX 2 MG GUM BC PRN (06:47)
[2018-06-01] MEDS: metFORMIN HCL 500 MG TABLET (FP) PO SCH (06:47)
[2018-06-01] MEDS: FLUTICASONE PROP 0.05% 16 GM NASAL SPRAY NS SCH (09:26)
[2018-06-01] MEDS: PRENATAL VITAMINS W/ FOLIC ACID TABLET (FP) PO SCH (09:27)
[2018-06-01] MEDS: GABAPENTIN 400 MG CAPSULE (FP) PO SCH ×2 (09:27→21:02)
[2018-06-01] MEDS: NICOTINE 14 MG/24 HOURS TOPICAL PATCH TD SCH (09:27)
[2018-06-01] MEDS: MENTHOL/PHENOL 1 EACH UD MM PRN (09:30)
[2018-06-01] MEDS: guaiFENesin 200 MG/10 ML 10 ML UNIT-DOSE CUPS PO PRN (09:30)
[2018-06-01] MEDS: traZODone HCL 50 MG TABLET (FP) PO SCH (21:02)
[2018-06-01] MEDS: THIAMINE HCL 100 MG TABLET (FP) PO SCH (21:02)
[2018-06-02] MEDS ORDERED: METHADONE HCL 5 MG TABLET ONE (03:27)
[2018-06-02] MEDS ORDERED: METHADONE HCL 10 MG TABLET ONE (03:28)
[2018-06-02] MEDS ORDERED: METHADONE HCL 40 MG DISPERSABLE TABLET ONE (03:28)
[2018-06-02] MEDS: METHADONE 120 MG, METHADONE 30 MG, METHADONE 5 MG PO SCH (06:17)
[2018-06-02] MEDS: NICOTINE POLACRILEX 2 MG GUM BC PRN (06:19)
[2018-06-02] MEDS: metFORMIN HCL 500 MG TABLET (FP) PO SCH (06:19)
[2018-06-02] MEDS: PRENATAL VITAMINS W/ FOLIC ACID TABLET (FP) PO SCH (09:39)
[2018-06-02] MEDS: GABAPENTIN 400 MG CAPSULE (FP) PO SCH ×2 (09:39→21:43)
[2018-06-02] MEDS: FLUTICASONE PROP 0.05% 16 GM NASAL SPRAY NS SCH (09:39)
[2018-06-02] MEDS: NICOTINE 14 MG/24 HOURS TOPICAL PATCH TD SCH (09:39)
[2018-06-02] MEDS: MENTHOL/PHENOL 1 EACH UD MM PRN (09:40)
[2018-06-02] MEDS: guaiFENesin 200 MG/10 ML 10 ML UNIT-DOSE CUPS PO PRN (09:40)
[2018-06-02] MEDS: THIAMINE HCL 100 MG TABLET (FP) PO SCH (21:43)
[2018-06-02] MEDS: traZODone HCL 50 MG TABLET (FP) PO SCH (21:44)
[2018-06-03] MEDS ORDERED: METHADONE HCL 5 MG TABLET ONE (03:23)
[2018-06-03] MEDS ORDERED: METHADONE HCL 40 MG DISPERSABLE TABLET ONE (03:23)
[2018-06-03] MEDS ORDERED: METHADONE HCL 10 MG TABLET ONE (03:23)
[2018-06-03] MEDS: METHADONE 120 MG, METHADONE 30 MG, METHADONE 5 MG PO SCH (06:48)
[2018-06-03] MEDS: metFORMIN HCL 500 MG TABLET (FP) PO SCH (06:49)
[2018-06-03] MEDS: NICOTINE POLACRILEX 2 MG GUM BC PRN (06:49)
[2018-06-03] MEDS ORDERED: PT OWN MED DRAWER 7, Y5N ONE ×3 (08:47→15:41)
[2018-06-03] MEDS: GABAPENTIN 400 MG CAPSULE (FP) PO SCH ×2 (10:21→21:25)
[2018-06-03] MEDS: PRENATAL VITAMINS W/ FOLIC ACID TABLET (FP) PO SCH (10:21)
[2018-06-03] MEDS: FLUTICASONE PROP 0.05% 16 GM NASAL SPRAY NS SCH (10:22)
[2018-06-03] MEDS: NICOTINE 14 MG/24 HOURS TOPICAL PATCH TD SCH (10:22)
[2018-06-03] MEDS ORDERED: MINERAL OIL/PETROLAT/WATER TOPICAL CREAM 113 GM JAR TP SCH (12:15)
[2018-06-03] MEDS ORDERED: COLLOIDAL OATMEAL 1 BAR EACH TP PRN (14:27)
[2018-06-03] MEDS: HYDROCORTISONE 1% TOPICAL OINT 30 GM TUBE TP SCH ×2 (15:20→21:26)
--- NOTE | 2018-06-03 16:24 | PN ---
S Progress Note Note: C/O ITCHY SKIN DUE TO "SOAP IN THE BATHROOM". PT REPORTS A HX OF ECZEMA. ALSO C/O HX UMBILICAL HERNIA SX 2 YRS AGO AT [facility] BUT FEELS LIKE IT IS COMING BACK. Vital Signs (72 hours) 06/01/18 06/01/18 06/01/18 03:30 07:31 09:05 Temperature 97.9 F Pulse Rate 82 78 Respiratory 18 16 16 Rate Blood Pressure 133/89 116/71 06/02/18 06/02/18 06/02/18 00:30 03:30 07:31 Temperature 97.4 F L Pulse Rate 67 Respiratory 18 18 16 Rate Blood Pressure 130/82 06/02/18 06/03/18 06/03/18 09:29 00:30 03:30 Temperature Pulse Rate 81 Respiratory 18 18 18 Rate Blood Pressure 119/74 06/03/18 07:16 Temperature 97.9 F Pulse Rate 71 Respiratory 18 Rate Blood Pressure 126/86 Laboratory Tests 05/28/18 05/29/18 05/30/18 06:22 06:22 06:22 POC Glucometer 107 81 88 05/31/18 06/01/18 06/02/18 06:06 06:45 06:16 POC Glucometer 95 98 122 06/03/18 06:47 POC Glucometer 124 ANKLES:DRY DARK SKIN DISCOLORATION ON BOTH ANKLE AREAS. ABDOMEN:SLIGHTLY FIRM LUMP DISTAL TO THE UMBILICUS. OBESED ABDOMEN;+BS; SOFT. A:ECZEMA ABOVE UMBILICAL LUMP R/O HERNIA PLAN:PT WILL FOLLOW UP WITH [facility] AFTER REHAB FOR FURTHER EVALUATION HYDROCORTISONE CREAM 1% APPLY TO RASH DIRECTED.
[2018-06-03] MEDS: THIAMINE HCL 100 MG TABLET (FP) PO SCH (21:25)
[2018-06-03] MEDS: traZODone HCL 50 MG TABLET (FP) PO SCH (21:25)
[2018-06-04] MEDS ORDERED: METHADONE HCL 5 MG TABLET ONE (06:00)
[2018-06-04] MEDS ORDERED: METHADONE HCL 40 MG DISPERSABLE TABLET ONE (06:01)
[2018-06-04] MEDS ORDERED: METHADONE HCL 10 MG TABLET ONE (06:01)
[2018-06-04] MEDS: METHADONE 120 MG, METHADONE 30 MG, METHADONE 5 MG PO SCH (06:22)
[2018-06-04] MEDS: metFORMIN HCL 500 MG TABLET (FP) PO SCH (06:23)
[2018-06-04] MEDS: FLUTICASONE PROP 0.05% 16 GM NASAL SPRAY NS SCH (10:31)
[2018-06-04] MEDS: HYDROCORTISONE 1% TOPICAL OINT 30 GM TUBE TP SCH ×2 (10:32→21:25)
[2018-06-04] MEDS: NICOTINE 14 MG/24 HOURS TOPICAL PATCH TD SCH (10:32)
[2018-06-04] MEDS: GABAPENTIN 400 MG CAPSULE (FP) PO SCH ×2 (10:32→21:24)
[2018-06-04] MEDS: PRENATAL VITAMINS W/ FOLIC ACID TABLET (FP) PO SCH (10:32)
[2018-06-04] MEDS: guaiFENesin 200 MG/10 ML 10 ML UNIT-DOSE CUPS PO PRN (10:33)
[2018-06-04] MEDS: MENTHOL/PHENOL 1 EACH UD MM PRN (10:33)
[2018-06-04] MEDS ORDERED: PT OWN MED DRAWER 7, Y5N ONE (15:13)
[2018-06-04] MEDS: THIAMINE HCL 100 MG TABLET (FP) PO SCH (21:24)
[2018-06-04] MEDS: traZODone HCL 50 MG TABLET (FP) PO SCH (21:24)
[2018-06-05] MEDS ORDERED: METHADONE HCL 5 MG TABLET ONE (03:28)
[2018-06-05] MEDS ORDERED: METHADONE HCL 40 MG DISPERSABLE TABLET ONE (03:29)
[2018-06-05] MEDS ORDERED: METHADONE HCL 10 MG TABLET ONE (03:29)
[2018-06-05] MEDS: METHADONE 120 MG, METHADONE 30 MG, METHADONE 5 MG PO SCH (06:22)
[2018-06-05] MEDS: metFORMIN HCL 500 MG TABLET (FP) PO SCH (06:24)
[2018-06-05] MEDS: NICOTINE POLACRILEX 2 MG GUM BC PRN ×2 (06:24→10:13)
[2018-06-05] MEDS ORDERED: MINERAL OIL/PETROLAT/WATER TOPICAL CREAM 113 GM JAR TP SCH (10:00)
[2018-06-05] MEDS: PRENATAL VITAMINS W/ FOLIC ACID TABLET (FP) PO SCH (10:13)
[2018-06-05] MEDS: FLUTICASONE PROP 0.05% 16 GM NASAL SPRAY NS SCH (10:13)
[2018-06-05] MEDS: NICOTINE 14 MG/24 HOURS TOPICAL PATCH TD SCH (10:13)
[2018-06-05] MEDS: HYDROCORTISONE 1% TOPICAL OINT 30 GM TUBE TP SCH ×2 (10:13→21:27)
[2018-06-05] MEDS: GABAPENTIN 400 MG CAPSULE (FP) PO SCH ×2 (10:13→21:27)
[2018-06-05] MEDS: MENTHOL/PHENOL 1 EACH UD MM PRN (10:16)
[2018-06-05] MEDS: guaiFENesin 200 MG/10 ML 10 ML UNIT-DOSE CUPS PO PRN (10:16)
[2018-06-05] MEDS: traZODone HCL 50 MG TABLET (FP) PO SCH (21:27)
[2018-06-05] MEDS: THIAMINE HCL 100 MG TABLET (FP) PO SCH (21:27)
[2018-06-06] MEDS ORDERED: METHADONE HCL 10 MG TABLET ONE (03:27)
[2018-06-06] MEDS ORDERED: METHADONE HCL 5 MG TABLET ONE (03:27)
[2018-06-06] MEDS ORDERED: METHADONE HCL 40 MG DISPERSABLE TABLET ONE (03:28)
[2018-06-06] MEDS: METHADONE 120 MG, METHADONE 30 MG, METHADONE 5 MG PO SCH (06:18)
[2018-06-06] MEDS: metFORMIN HCL 500 MG TABLET (FP) PO SCH (06:19)
[2018-06-06] MEDS: NICOTINE POLACRILEX 2 MG GUM BC PRN (06:20)
[2018-06-06] MEDS ORDERED: PT OWN MED DRAWER 7, Y5N ONE (08:36)
[2018-06-06] MEDS: NICOTINE 14 MG/24 HOURS TOPICAL PATCH TD SCH (10:13)
[2018-06-06] MEDS: FLUTICASONE PROP 0.05% 16 GM NASAL SPRAY NS SCH (10:13)
[2018-06-06] MEDS: GABAPENTIN 400 MG CAPSULE (FP) PO SCH ×2 (10:14→21:14)
[2018-06-06] MEDS: PRENATAL VITAMINS W/ FOLIC ACID TABLET (FP) PO SCH (10:14)
[2018-06-06] MEDS: HYDROCORTISONE 1% TOPICAL OINT 30 GM TUBE TP SCH ×2 (10:15→21:15)
[2018-06-06] MEDS: traZODone HCL 50 MG TABLET (FP) PO SCH (21:14)
[2018-06-06] MEDS: THIAMINE HCL 100 MG TABLET (FP) PO SCH (21:14)
[2018-06-07] MEDS ORDERED: METHADONE HCL 10 MG TABLET ONE (03:32)
[2018-06-07] MEDS ORDERED: METHADONE HCL 40 MG DISPERSABLE TABLET ONE (03:32)
[2018-06-07] MEDS ORDERED: METHADONE HCL 5 MG TABLET ONE (03:32)
[2018-06-07] MEDS: METHADONE 120 MG, METHADONE 30 MG, METHADONE 5 MG PO SCH (06:04)
[2018-06-07] MEDS: NICOTINE POLACRILEX 2 MG GUM BC PRN (06:05)
[2018-06-07] MEDS: metFORMIN HCL 500 MG TABLET (FP) PO SCH (06:05)
[2018-06-07] MEDS: PRENATAL VITAMINS W/ FOLIC ACID TABLET (FP) PO SCH (10:28)
[2018-06-07] MEDS: GABAPENTIN 400 MG CAPSULE (FP) PO SCH ×2 (10:28→21:27)
[2018-06-07] MEDS: NICOTINE 14 MG/24 HOURS TOPICAL PATCH TD SCH (10:28)
[2018-06-07] MEDS: HYDROCORTISONE 1% TOPICAL OINT 30 GM TUBE TP SCH ×2 (10:29→21:27)
[2018-06-07] MEDS: FLUTICASONE PROP 0.05% 16 GM NASAL SPRAY NS SCH (10:29)
[2018-06-07] MEDS: guaiFENesin 200 MG/10 ML 10 ML UNIT-DOSE CUPS PO PRN (10:30)
[2018-06-07] MEDS: MENTHOL/PHENOL 1 EACH UD MM PRN (10:32)
[2018-06-07] MEDS ORDERED: PT OWN MED DRAWER 7, Y5N ONE (10:51)
[2018-06-07] MEDS: THIAMINE HCL 100 MG TABLET (FP) PO SCH (21:27)
[2018-06-07] MEDS: traZODone HCL 50 MG TABLET (FP) PO SCH (21:27)
[2018-06-08] MEDS ORDERED: METHADONE HCL 5 MG TABLET ONE (05:58)
[2018-06-08] MEDS ORDERED: METHADONE HCL 10 MG TABLET ONE (05:58)
[2018-06-08] MEDS ORDERED: METHADONE HCL 40 MG DISPERSABLE TABLET ONE (05:59)
[2018-06-08] MEDS: metFORMIN HCL 500 MG TABLET (FP) PO SCH (06:26)
[2018-06-08] MEDS: METHADONE 120 MG, METHADONE 30 MG, METHADONE 5 MG PO SCH (06:26)
[2018-06-08 07:24] VITALS: TEMP 97.8
[2018-06-08] MEDS: PRENATAL VITAMINS W/ FOLIC ACID TABLET (FP) PO SCH (10:24)
[2018-06-08] MEDS: GABAPENTIN 400 MG CAPSULE (FP) PO SCH ×2 (10:24→21:09)
[2018-06-08] MEDS: NICOTINE 14 MG/24 HOURS TOPICAL PATCH TD SCH (10:25)
[2018-06-08] MEDS: HYDROCORTISONE 1% TOPICAL OINT 30 GM TUBE TP SCH ×2 (10:25→21:10)
[2018-06-08] MEDS: FLUTICASONE PROP 0.05% 16 GM NASAL SPRAY NS SCH (10:25)
[2018-06-08] MEDS: THIAMINE HCL 100 MG TABLET (FP) PO SCH (21:09)
[2018-06-08] MEDS: traZODone HCL 50 MG TABLET (FP) PO SCH (21:09)
[2018-06-09] MEDS ORDERED: METHADONE HCL 5 MG TABLET ONE (06:00)
[2018-06-09] MEDS ORDERED: METHADONE HCL 40 MG DISPERSABLE TABLET ONE (06:00)
[2018-06-09] MEDS ORDERED: METHADONE HCL 10 MG TABLET ONE (06:00)
[2018-06-09] MEDS: METHADONE 120 MG, METHADONE 30 MG, METHADONE 5 MG PO SCH (06:27)
[2018-06-09] MEDS: metFORMIN HCL 500 MG TABLET (FP) PO SCH (06:28)
[2018-06-09] MEDS: NICOTINE 14 MG/24 HOURS TOPICAL PATCH TD SCH (10:18)
[2018-06-09] MEDS: GABAPENTIN 400 MG CAPSULE (FP) PO SCH ×2 (10:19→21:14)
[2018-06-09] MEDS: HYDROCORTISONE 1% TOPICAL OINT 30 GM TUBE TP SCH ×2 (10:19→21:14)
[2018-06-09] MEDS: PRENATAL VITAMINS W/ FOLIC ACID TABLET (FP) PO SCH (10:19)
[2018-06-09] MEDS: FLUTICASONE PROP 0.05% 16 GM NASAL SPRAY NS SCH (10:19)
[2018-06-09] MEDS: THIAMINE HCL 100 MG TABLET (FP) PO SCH (21:13)
[2018-06-09] MEDS: traZODone HCL 50 MG TABLET (FP) PO SCH (21:14)
[2018-06-10] MEDS ORDERED: METHADONE HCL 5 MG TABLET ONE (05:56)
[2018-06-10] MEDS ORDERED: METHADONE HCL 40 MG DISPERSABLE TABLET ONE (05:57)
[2018-06-10] MEDS ORDERED: METHADONE HCL 10 MG TABLET ONE (05:57)
[2018-06-10] MEDS ORDERED: METHADONE 120 MG, METHADONE 30 MG, METHADONE 5 MG PO SCH (06:00)
[2018-06-10] MEDS: metFORMIN HCL 500 MG TABLET (FP) PO SCH (06:10)
[2018-06-10 07:09] VITALS: BP 107/67; PULSE 64
--- NOTE | 2018-06-10 08:08 | PN ---
S Progress Note Note: Patient is scheduled for discharged today. Script for 30 days supply of Trazadone 50 mg po HS is electronically transmitted to [facility] at [address] [place] [phone]
[2018-06-10] MEDS ORDERED: PT OWN MED DRAWER 7, Y5N ONE ×2 (08:47→09:09)
[2018-06-10] MEDS: PRENATAL VITAMINS W/ FOLIC ACID TABLET (FP) PO SCH (09:07)
[2018-06-10] MEDS: NICOTINE 14 MG/24 HOURS TOPICAL PATCH TD SCH (09:07)
[2018-06-10] MEDS: GABAPENTIN 400 MG CAPSULE (FP) PO SCH (09:09)
[2018-06-10] MEDS: HYDROCORTISONE 1% TOPICAL OINT 30 GM TUBE TP SCH (09:09)
[2018-06-10] MEDS: FLUTICASONE PROP 0.05% 16 GM NASAL SPRAY NS SCH (09:10)
--- NOTE | 2018-06-10 11:40 | PN ---
[facility] Progress Note Note: PT COMPLETED REHAB AND DISCHARGED TODAY. PT WAS REFERRED TO [facility] FOR CD AFTERCARE ON [place], [place]. PT REPORTS SHE HAS PRIMARY CARE AT [facility], [place], [place] WHERE SHE WILL FOLLOW UP FOR EVALUATION OF HER UMBILICAL LUMP. PT IS ALERT O X 3. DENIES S/H/I. Home Medications Medication Instructions Recorded Risperidone [Risperdal -] 1 mg PO HS 05/23/18 Sertraline HCl [Zoloft -] 100 mg PO DAILY 05/23/18 Metformin HCl [Glucophage] 500 mg PO DAILY #30 tablet 05/26/18 traZODone HCL [Desyrel -] 50 mg PO HS #30 tablet 06/10/18 Vital Signs (72 hours) 06/08/18 06/08/18 06/09/18 03:30 07:23 00:30 Temperature 97.8 F Pulse Rate 67 Respiratory 18 18 18 Rate Blood Pressure 114/74 06/09/18 06/09/18 06/10/18 03:30 07:16 03:30 Temperature 97.8 F Pulse Rate 67 Respiratory 18 18 18 Rate Blood Pressure 114/72 06/10/18 07:08 Temperature 97.8 F Pulse Rate 64 Respiratory 18 Rate Blood Pressure 107/67 Laboratory Tests 05/28/18 05/29/18 05/30/18 06:22 06:22 06:22 POC Glucometer 107 81 88 05/31/18 06/01/18 06/02/18 06:06 06:45 06:16 POC Glucometer 95 98 122 06/03/18 06/04/18 06/05/18 06:47 06:21 06:22 POC Glucometer 124 95 127 06/06/18 06/07/18 06/08/18 06:17 06:02 06:25 POC Glucometer 84 93 91 06/09/18 06/10/18 06:26 06:08 POC Glucometer 100 118 NAD MEDICALLY STABLE PLAN:FOLLOW UP WITH CD AFTERCARE SCHEDULED ON 06/12/18 AT 11;00 A.M FOLLOW UP WITH MEDICAL MANAGEMENT AT [facility] PLANNED IN 1-2 WEEKS AFTER DISCHARGE. All Active Problems Alcohol dependence (Chronic) Cocaine dependence (Chronic) Nicotine dependence (Chronic) Opioid dependence on agonist therapy (Chronic)
== END 2018-06-10 09:16 | disposition home or self-care (01) | DRG 772 ==
LOC: YASAS 12:48 → Y3E 12:49
PROVIDERS: ADMIT Neuromusculoskeletal Medicine & OMM; ATTEND Neuromusculoskeletal Medicine & OMM
PROC: HZ42ZZZ Group Counseling for Substance Abuse Treatment, Cognitive-Behavioral (ICD-10-PCS; principal; 2018-05-27)
DX: F10.20 Alcohol dependence, uncomplicated (principal); F14.20 Cocaine dependence, uncomplicated; F11.20 Opioid dependence, uncomplicated; F17.210 Nicotine dependence, cigarettes, uncomplicated; F19.24 Other psychoactive substance dependence with psychoactive substance-induced mood disorder; F31.9 Bipolar disorder, unspecified; I10 Essential (primary) hypertension; E11.9 Type 2 diabetes mellitus without complications; Z79.84 Long term (current) use of oral hypoglycemic drugs; E78.5 Hyperlipidemia, unspecified; L30.9 Dermatitis, unspecified; M13.862 Other specified arthritis, left knee; M13.861 Other specified arthritis, right knee; G47.00 Insomnia, unspecified; B07.0 Plantar wart
CPT/HCPCS: 73110-TC-RT-FY; 73130-TC-RT-FY; 82962